=== PATIENT | female | born 1965 | race Caucasian/White ===

== ENCOUNTER 2017-05-18 05:35 | Inpatient (IN) | payer BC ==
[~2017-05-18 05:35] MED LIST: Acetaminophen 500 MG Tab PO ONE; Celecoxib 200 MG Cap PO ONE; Gabapentin 300 MG Cap PO ONE; Scopolamine 1.5 MG Transdermal Patch TOP ONE
[2017-05-18] MEDS ORDERED: Dextrose 5%-Lactated Ringers 1,000 ML IV SCH (07:00)
[2017-05-18] MEDS ORDERED: cefOXitin 2 GM Vial ONE (07:13)
[2017-05-18] MEDS ORDERED: Lidocaine 2% 100 MG/5 ML Syringe IVPUSH ONE (07:30)
[2017-05-18] MEDS ORDERED: Ketamine 500 MG/5 ML MDV IV SCH (07:30)
[2017-05-18] MEDS ORDERED: Ropivacaine 60 ML, Dexamethasone 8 MG, EPINEPHrine 0.4 MG, Sodium Chloride 0.9% 17.6 ML NERVRT SCH ×4 (07:30)
[2017-05-18] MEDS ORDERED: Rocuronium 50 MG/5 ML Vial ONE (07:41)
[2017-05-18] MEDS ORDERED: fentaNYL 250 MCG/5 ML SDV ONE (07:41)
[2017-05-18] MEDS ORDERED: Succinylcholine 200 MG/10 ML MDV ONE (07:41)
[2017-05-18] MEDS ORDERED: Glycopyrrolate 0.2 MG/ML 5 ML MDV ONE (07:41)
[2017-05-18] MEDS ORDERED: Propofol 200 MG/20 ML SDV ONE (07:41)
[2017-05-18] MEDS ORDERED: Dexamethasone 4 MG/ML SDV ONE (07:41)
[2017-05-18] MEDS ORDERED: Neostigmine Methylsulfate 1 MG/ML 5 ML Syringe ONE (07:41)
[2017-05-18] MEDS ORDERED: Ondansetron 4 MG/2 ML SDV ONE (07:41)
[2017-05-18] MEDS: cefOXitin 2 GM in Premix Bag 1 BAG IV ONE ×2 (07:51→18:35)
[2017-05-18] MEDS ORDERED: CHECK SCOPOLAMINE PATCH DAILY SCH (09:00)
[2017-05-18] MEDS ORDERED: Lactated Ringers 1,000 ML ONE ×2 (09:25)
[2017-05-18] MEDS ORDERED: fentaNYL 100 MCG/2 ML SDV ONE (09:57)
[2017-05-18] MEDS ORDERED: hydrOXYzine HCl 100 MG/2 ML SDV IM ONE (11:00)
[2017-05-18] MEDS: Lidocaine 0.4%/D5W 2 GM/500 ML BAG IV SCH (12:42)
[2017-05-18] MEDS ORDERED: Labetalol 20 MG/4 ML Syringe IVPUSH PRN (13:00)
[2017-05-18] MEDS ORDERED: diphenhydrAMINE 50 MG/ML SDV IVPUSH PRN (13:00)
[2017-05-18] MEDS ORDERED: Ondansetron 4 MG/2 ML SDV IVPUSH PRN (13:00)
[2017-05-18] MEDS ORDERED: Metoclopramide 10 MG/2 ML SDV IVPUSH PRN (13:00)
[2017-05-18] MEDS ORDERED: hydrOXYzine HCl 100 MG/2 ML SDV IM PRN (13:00)
[2017-05-18] MEDS: Dextrose 5%-Lactated Ringers 1,000 ML IV SCH ×2 (13:44→23:34)
[2017-05-18] MEDS ORDERED: Pantoprazole 40 MG Vial IVPUSH SCH (14:00)
[2017-05-18] MEDS: cefOXitin 2 GM in Sodium Chloride 0.9% 50 ML IV SCH ×2 (14:58→19:53)
[2017-05-18] MEDS: Gabapentin 250 MG/5 ML Solution ML 470 ML Bottle PO SCH ×2 (14:58→20:55)
[2017-05-18] MEDS ORDERED: MVI, Adult with Vitamin K 10 ML, Thiamine 200 MG, Chromium/Copper/Mang/Selen/Zn 1 ML in... IV SCH ×4 (16:00)
[2017-05-18] MEDS: Acetaminophen Soln 650 MG/20.3 ML UD Cup PO SCH ×2 (16:34→22:33)
[2017-05-18] MEDS: Heparin Sodium 5,000 Units/ML Vial SUBCUT SCH (17:07)
[2017-05-19] MEDS: Lidocaine 0.4%/D5W 2 GM/500 ML BAG IV SCH (00:11)
[2017-05-19] MEDS: cefOXitin 2 GM in Sodium Chloride 0.9% 50 ML IV SCH (01:59)
[2017-05-19] MEDS ORDERED: Iohexol 647 MG/ML 50 ML SDV PO STA (02:09)
[2017-05-19] MEDS: Acetaminophen Soln 650 MG/20.3 ML UD Cup PO SCH ×4 (03:58→21:40)
[2017-05-19] MEDS: Heparin Sodium 5,000 Units/ML Vial SUBCUT SCH ×2 (05:17→17:02)
[2017-05-19] MEDS: Dextrose 5%-Lactated Ringers 1,000 ML IV SCH (07:19)
[2017-05-19] MEDS: Celecoxib 200 MG Cap PO SCH (07:21)
[2017-05-19] MEDS ORDERED: Ondansetron 4 MG Tab.DIS PO PRN (07:48)
[2017-05-19] MEDS ORDERED: Methylphenidate 10 MG Tab PO SCH (09:00)
--- NOTE | 2017-05-19 09:01 | CR ---
UGI wo KUB HISTORY: eval R -Y GBP FINDINGS: After administration of oral contrast, upright views were obtained. Post operative changes gastric bypass. Surgical drains in place. No evidence for leak. Contrast passes freely into proximal small bowel loops. IMPRESSION: No evidence for leak or obstruction.
--- NOTE | 2017-05-19 09:16 | PN ---
DATE OF SERVICE: 05/19/2017 SUBJECTIVE: Barbie is postop day #1, her upper GI was normal. Oral intake was 720. She has been ambulating, has no questions or concerns. OBJECTIVE: GENERAL: Barbie Nunez is a 51-year-old female. VITAL SIGNS: TPR is 96.2, 80, 16; blood pressure 129/87. HEENT: Negative. NECK: Supple. HEART: Regular rate and rhythm. LUNGS: Clear. ABDOMEN: Dressings dry and intact. KIRSTEN drain is draining a light pink serosanguineous drainage. Abdominal binder is on. EXTREMITIES: Without peripheral edema. She continues to have right shoulder pain from prior to surgery. ASSESSMENT: 1. Laparoscopic Chris-en-Y gastric bypass surgery, liver biopsy, repair of diaphragmatic hernia, excision of mediastinal lipoma, morbid obesity, hepatomegaly, diaphragmatic hernia, and mediastinal lipoma on 05/18/2017. 2. Right shoulder pain. PLAN: 1. Step-2 gastric bypass diet with no cereal. 2. Home medications were started. a. Celexa 40 mg daily p.o. b. Hydrochlorothiazide 12.5 mg p.o. daily. c. Ritalin 20 mg p.o. b.i.d. d. Zofran ODT 4 mg sublingual every 4 hours p.r.n. nausea. e. Diovan 80 mg p.o. daily. 3. Good pulmonary toilet. 4. Communication order written for 3 bed cups q.20 minutes, record at bedside. 5. Scheduled bilateral duplex scan of lower extremities in a.m. on 05/20/2017 at 7:00 a.m. and consult Joshua Wang DO for right shoulder pain. 6. Obtain copy of shoulder x-rays done at [facility]. 7. We will evaluate p.r.n. or in a.m. Cleopatra Leal PA-C /[id number]
[2017-05-19] MEDS: Gabapentin 250 MG/5 ML Solution ML 470 ML Bottle PO SCH ×3 (11:07→20:29)
[2017-05-19] MEDS: Hydrochlorothiazide 12.5 MG Cap PO SCH (11:09)
[2017-05-19] MEDS: Citalopram 20 MG Tab PO SCH (11:09)
[2017-05-19] MEDS: SCOPOLAMINE PATCH CHECK TOP SCH (11:11)
[2017-05-19] MEDS: Pantoprazole 40 MG Tab.CR PO SCH (14:46)
[2017-05-19] MEDS: Methylphenidate 10 MG Tab PO SCH (14:46)
[2017-05-20] MEDS: Acetaminophen Soln 650 MG/20.3 ML UD Cup PO SCH ×2 (04:07→09:43)
[2017-05-20] MEDS: Heparin Sodium 5,000 Units/ML Vial SUBCUT SCH (06:41)
[2017-05-20] MEDS: Citalopram 20 MG Tab PO SCH (08:46)
[2017-05-20] MEDS: Celecoxib 200 MG Cap PO SCH (08:46)
[2017-05-20] MEDS: Hydrochlorothiazide 12.5 MG Cap PO SCH (08:46)
[2017-05-20] MEDS: Pantoprazole 40 MG Tab.CR PO SCH (08:47)
[2017-05-20] MEDS: SCOPOLAMINE PATCH CHECK TOP SCH (08:48)
[2017-05-20] MEDS: Methylphenidate 10 MG Tab PO SCH (08:56)
[2017-05-20] MEDS: Gabapentin 250 MG/5 ML Solution ML 470 ML Bottle PO SCH (08:57)
[2017-05-20] MEDS ORDERED: Cyanocobalamin (Vitamin B12) 1,000 MCG/ML SDV IM ONE (09:00)
--- NOTE | 2017-05-20 10:17 | US ---
VL Duplex Lwr Ext Veins Comp HISTORY: history of PE; Pt now postop FINDINGS: Deep venous system of the right and left lower extremity demonstrates normal blood flow and compressi bility throughout. Normal Doppler waveform variation is seen with respiration and calf compression. N o color flow abnormality can be seen. IMPRESSION: No sonographic evidence for DVT in either the right or left lower extremity.
--- NOTE | 2017-05-20 10:22 | DISCH ---
ADMISSION DIAGNOSES: Morbid obesity, BMI 44.8; attention deficit hyperactivity disorder; essential hypertension; anxiety; depression; severe sleep apnea; and history of pulmonary embolism. DISCHARGE DIAGNOSES: 1. Laparoscopic Chris-en-Y gastric bypass surgery, liver biopsy, repair of diaphragmatic hernia, and excision of mediastinal lipoma for morbid obesity, hepatomegaly, diaphragmatic hernia, and mediastinal lipoma. Date of surgery, 05/18/2017. 2. Right shoulder pain. HISTORY: Barbie Nunez is a 51-year-old female with longstanding history of morbid obesity and increasing comorbidities. After preoperative evaluation and discussion of possible risks and possible complications, she wished to proceed with surgical procedure. HOSPITAL COURSE: Barbie had her surgery on 05/18/2017. She had no operative complications. On postop day #1, her upper GI was normal. She was started on a step-2 gastric bypass diet with no cereal and her home medications. On postop day #2, she was ready to be discharged to home. Vital signs were stable. Oral intake was adequate. Activity was good. Pain was well managed. PHYSICAL EXAMINATION: GENERAL: Barbie Nunez is a 51-year-old female. VITAL SIGNS: Height is 5 feet 5 inches. Weight is 269 pounds, BMI 44.8. TPR is 97, 83, 16, and blood pressure is 119/65. HEENT: Negative. NECK: Supple. HEART: Regular rate and rhythm. LUNGS: Clear. ABDOMEN: Incisions look good. 4x4 over KIRSTEN drain site. EXTREMITIES: Without peripheral edema. DISPOSITION: Discharged to home. CONDITION: Stable and improving. FOLLOWUP APPOINTMENT: Cleopatra Leal PA-C, on 05/26/2017 at 11 a.m. DISCHARGE MEDICATIONS: Home medications; 1. Tylenol 650 mg oral q.6 hours for 2 weeks. 2. Celebrex 200 mg daily for 2 weeks. 3. Zofran 4 mg ODT q.4 hours p.r.n. nausea, #30. 4. She is to resume her home medications of citalopram 40 mg p.o. daily, Diovan/hydrochlorothiazide 80/12.5 mg one tablet daily, and methylphenidate 20 mg oral twice daily. 5. She is to discontinue taking the [place], calcium citrate, vitamin D3, vitamin B12, multivitamin, Zantac, and B complex. DISCHARGE DIET: Step-2 gastric bypass diet with no cereal for 2 weeks. ACTIVITY: As tolerated. No lifting over 10 pounds for 2 weeks. Driving, do not drive for 1 week. Shower/bathing, may shower. DISCHARGE INSTRUCTIONS: Notify provider if any fever, increased pain, nausea, or vomiting. Wound incision care, keep site clean and dry. Wear abdominal binder for 2 weeks and then as tolerated. Special instruction; use incentive spirometer 10 times every hour while awake for 2 weeks.
--- NOTE | 2017-05-31 13:35 | OR ---
DATE OF PROCEDURE: 05/18/2017 PREOPERATIVE DIAGNOSIS: Morbid obesity. POSTOPERATIVE DIAGNOSES: 1. Morbid obesity. 2. Marked hepatomegaly. 3. Paraesophageal diaphragmatic hernia. 4. Mediastinal lipoma. OPERATIVE PROCEDURE: 1. Laparoscopic Chris-en-Y gastric bypass along with gastroenterostomy (91987). 2. Stevie-Cut needle liver biopsy (18661). 3. Repair of paraesophageal diaphragmatic hernia (94812). 4. Excision of mediastinal lipoma (20750). ANESTHESIA: General. COMMUTER PILOT: Cleopatra Leal PA-C. INDICATIONS FOR PROCEDURE: This is a 51-year-old female presenting with longstanding morbid obesity, increasingly significant comorbidities. After preoperative evaluation and discussion, she wished to proceed with a gastric bypass procedure. Potential risks of the procedure including bleeding, infection, leaks from various GI tract closures, problems with bowel obstruction over time as well as possibility of cardiopulmonary, septic, or hemorrhagic complications leading to were all discussed, and the patient wishes to proceed. DETAILS OF PROCEDURE: The patient was taken to the operating room and placed in a supine position. After general endotracheal anesthesia was induced, the abdomen was prepped and draped and an orogastric tube was placed. At 15 cm inferior, 5 cm left of xiphoid process, a transverse incision was made. The peritoneal cavity entered under direct vision with an Optiview trocar, inflated to 15 mmHg pressure with CO2. The bilateral subcostal transverse abdominis plane blocks were then placed with direct visualization of the location from within and this was done with a standard solution. Following this, 5 additional trocars were placed across her upper mid abdomen and general exploration was undertaken. The patient was noted to have marked hepatomegaly with liver volume being roughly 2 to 3 times normal, liver grossly fatty infiltrated. Stevie-Cut needle biopsies were obtained from the left lobe of the liver and minimal bleeding from the biopsy sites was controlled with electrocautery. Following this, the omentum was divided in midline up to the level of the transverse colon. This allowed identification of the small bowel to the ligament of Treitz. Small bowel was then traced out 200 cm distal to that point, was divided transversely with a SIAURA stapler. The small bowel was then traced an additional 150 cm where the [id number] enteroenterostomy was accomplished with internal firing of Endo-ISAURA 60-mm stapler. The common opening was then closed transversely with the same stapler and the angles anastomosed, and mesenteric defect approximated with some 0 Ethibond stitch along with 4 mL of fibrin sealant. The divided end of the Chris limb was then from the mesentery for a few centimeters, which allowed an antecolic position of the Chris limb up to the level of the gastroesophageal junction without tension. The liver was then retracted anteriorly and the patient was noted to have a moderate-sized paraesophageal diaphragmatic hernia. This included prolapse of a portion of the gastric fundus and perigastric fat in a plane anterior to the course of the esophagus. This was reduced. The peritoneum overlying it was incised, dissected downward. During the course of the dissection of the crural area, a mediastinal lipoma was encountered. This was excised as well and sent as a separate specimen. The anterior repair of the diaphragmatic hernia was accomplished with 0 Ethibond sutures reinforced with PTFE pledgets. The gastrointestinal balloon catheter was then inflated 15 mL and pulled up snugly against the EG junction. The gastric wall over the apex of the balloon was then marked with electrocautery, and balloon catheter deflated and pulled up from the esophagus. The lesser omental tissue adjacent to gastric cardia was then incised following dissection behind the stomach at that level. The pouch formation was initiated with a transverse firing of the ISAURA stapler at the level of cauterized johnny in the gastric cardia and then continued upward towards the angle of His with additional ISAURA staple firings. After completion of the pouch, both staple lines were noted to be intact. The anvil of a 25-mm EEA stapler was attached to a [place] sump type tube. The latter was brought down through the mouth and taken out through a small opening in the gastric pouch allowing the anvil likewise to be pulled down within the gastric pouch. The divided end of the Chris limb was then opened and the main body of the EEA stapler was passed several centimeters into the lumen of the small bowel, brought up the anvil and united with it, thus creating the gastrojejunostomy. Upon removal of the stapler, double donuts of mucosa were noted within it. The small bowel was closed off with a vascular ISAURA load. The gastrojejunostomy was then reinforced with some 3-0 Vicryl seromuscular stitch along with fibrin sealant. The leak test was accomplished with injection of 120 mL of air in the gastric pouch while submerged with cefoxitin-containing saline solution. No leaks were identified. One Michael-Cornell drain was taken out through the left lateral trocar site, placed in the area of gastrojejunostomy, from there up into the splenic fossa with no further problems noted. The trocars were removed, the peritoneal cavity deflated. Incisions were closed with some 4-0 Vicryl skin stitch which was also used to fix the drain. The patient was taken to the recovery room in satisfactory condition. Physician clinical trials assistant, Cleopatra Leal, played an essential role in assisting in this case, helping to position the patient, retract structures as needed, as well as suturing and cutting sutures when indicated. Her presence improved patient safety and decreased the operative time. Morro Wang MD /[id number]
== END 2017-05-20 10:17 | disposition home or self-care (01) | DRG 403 ==
LOC: JP.SDS 05:35 → JP.SDSSCHI 05:35 → EDSTATUS 07:30 → JP.2SS 10:20
PROVIDERS: ADMIT Surgery; ATTEND Surgery
PROC: 0D164ZA Bypass Stomach to Jejunum, Percutaneous Endoscopic Approach (ICD-10-PCS; principal; 2017-05-18)
PROC: 0FB24ZX Excision of Left Lobe Liver, Percutaneous Endoscopic Approach, Diagnostic (ICD-10-PCS; 2017-05-18)
PROC: 0BQT4ZZ Repair Diaphragm, Percutaneous Endoscopic Approach (ICD-10-PCS; 2017-05-18)
PROC: 0WBC4ZX Excision of Mediastinum, Percutaneous Endoscopic Approach, Diagnostic (ICD-10-PCS; 2017-05-18)
PROC: 3E0T3BZ Introduction of Anesthetic Agent into Peripheral Nerves and Plexi, Percutaneous Approach (ICD-10-PCS; 2017-05-18)
DX: E66.01 Morbid (severe) obesity due to excess calories (principal); Z68.41 Body mass index [BMI] 40.0-44.9, adult; R16.0 Hepatomegaly, not elsewhere classified; K44.9 Diaphragmatic hernia without obstruction or gangrene; D17.4 Benign lipomatous neoplasm of intrathoracic organs; I10 Essential (primary) hypertension; G47.30 Sleep apnea, unspecified; Z87.891 Personal history of nicotine dependence; F41.8 Other specified anxiety disorders; M25.511 Pain in right shoulder; Z86.711 Personal history of pulmonary embolism; K76.0 Fatty (change of) liver, not elsewhere classified
CPT/HCPCS: 36415; 74240; 74240-26; 80053; 82962; 83735; 84100; 85027; 86850; 86900; 86901; 88304; 88307; 88313; 93970; 93970-26; A9270-GY; C9113; J0171; J0330; J0694; J1100; J1644; J2001; J2405; J2704; J2710; J2795; J3010; J3410; J3411; J3420; J7030; J7040; J7042; J7050; J7120; Q9967